=== PATIENT | male | born 2005 ===

== ENCOUNTER 2025-04-02 20:50 | Emergency (ER) | payer BC ==
[~2025-04-02] VITALS: Ht 167.6 cm; Wt 81.7 kg
[2025-04-02] MEDS ORDERED: Prednisone20 MG PO (21:03)
== END 2025-04-02 21:14 | disposition home or self-care (01) ==
LOC: ER 20:50
DX: L23.7 Allergic contact dermatitis due to plants, except food (principal)
CPT/HCPCS: 99282; J7512